=== PATIENT | male | born 1985 | race Caucasian/White ===

== ENCOUNTER 2020-02-09 12:20 | Emergency (ER) | payer OTHER ==
[~2020-02-09] VITALS: Ht 185.5 cm; Wt 106.6 kg
[~2020-02-09 12:20] MED LIST: HYDR-34 PO; LNZ600T PO
[2020-02-09 12:23] VITALS: BP 145/92
[2020-02-09] MEDS ORDERED: LIDOCAINE 1% INJ 20 ML 20 ML VIAL ONE (12:24)
[2020-02-09] MEDS ORDERED: TETANUS,DIPTH,PERTUSS P/F (BOOSTRIX) 0.5 ML VIAL IM ONE ×2 (12:24→12:30)
[2020-02-09] MEDS ORDERED: LIDOCAINE 1% INJ 20 ML 20 ML VIAL INJ ONE (12:45)
[2020-02-09] MEDS ORDERED: AMOX-358 PO (12:50)
--- NOTE | 2020-02-09 12:50 | ED Lower Extremity ---
General Chief Complaint: Laceration Stated Complaint: L LEG LACERATION Nursing Triage Note: PT AMB TO [facility] WITH COMPLAINT OF LEFT LEG LACERATION. STATES WAS CUTTING FIREWOOD AND ACCIDENTALLY CAUGHT LEG. DENIES ANY OTHER INJURIES. UNKNOWN LAST TETANUS. Nursing Sepsis Screen: No Definite Risk Source: patient Exam Limitations: no limitations History of Present Illness Date Seen by Provider: Feb 09, 2020 Time Seen by Provider: 12:48 Initial Comments To ER with a left leg laceration. This was from a chain saw just prior to arrival. Tetanus is not up-to-date. Onset: just prior to arrival Severity: moderate (IGO) Pain/Injury Location: left leg Method of Injury: other (The patient states he was cutting firewood above his head with a chainsaw and it came down onto his leg. He did have jeans on at the time of injury) Allergies and Home Medications Allergies Coded Allergies: NKANo Known Allergies (Unverified Allergy, Mild, 10/30/08) Home Medications Amoxicillin/Potassium Clav 1 Each Tablet, 1 EACH PO BID Prescribed by: MELLISA CHAND on 02/09/20 1250 Hydrocodone Bit/Acetaminophen 1 Ea Tablet, 1-2 EA PO Q 4 - 6 HR PRN, (Reported) Linezolid 600 Mg Tablet, 1 TAB PO BID, (Reported) Patient Home Medication List Home Medication List Reviewed: Yes Review of Systems Constitutional: no symptoms reported, see HPI; No chills, No diaphoresis, No fever, No malaise, No weakness EENTM: see HPI, no symptoms reported Respiratory: no symptoms reported, see HPI Cardiovascular: no symptoms reported; No syncope Gastrointestinal: no symptoms reported, see HPI Genitourinary: no symptoms reported, see HPI Musculoskeletal: no symptoms reported, see HPI; No joint pain, No joint swelling Skin: see HPI Psychiatric/Neurological: No Symptoms Reported, See HPI Past Dqupsla-Qvelih-Gbyobw Hx Patient Social History Alcohol Use: Denies Use Recreational Drug Use: No Smoking Status: Never a Smoker Recent Foreign Travel: No Contact w/Someone Who Travel: No Recent Infectious Disease Expo: No Immunizations Up To Date Tetanus Booster (TDap): More than 5yrs PED Vaccines UTD: Yes Seasonal Allergies Seasonal Allergies: No Past Medical History Surgeries: No Respiratory: No Cardiac: No Neurological: No Reproductive Disorders: No Sexually Transmitted Disease: No Gastrointestinal: No Musculoskeletal: No Endocrine: No Cancer: No Psychosocial: No Integumentary: Yes (h/x of infection lateral rt ankle last wk. ) Recent Skin Changes Blood Disorders: No Family Medical History No Pertinent Family Hx Physical Exam Vital Signs Vital Signs - First Documented 02/09/20 12:23 Pulse 74 Resp 20 B/P (MAP) 145/92 (109) Pulse Ox 100 O2 Delivery Room Air Capillary Refill : Less Than 3 Seconds Height, Weight, BMI Height: '" Weight: lbs. oz. kg; 30.00 BMI Method: General Appearance: WD/WN, no apparent distress HEENT: normal ENT inspection Neck: normal inspection Cardiovascular: normal peripheral pulses, no edema Respiratory: no respiratory distress, no accessory muscle use Back: normal inspection (E), no vertebral tenderness Hips: bilateral hip normal range of motion, bilateral hip no evidence of injury Legs: left leg normal range of motion, left leg other (Laceration to medial calf) Knees: bilateral knee non-tender, bilateral knee normal inspection Neurologic/Psychiatric: alert, normal mood/affect, oriented x 3 Skin: normal color, warm/dry Lymphatic: no adenopathy Procedures/Interventions Wound Location: Lower Extremities Wound Length (cm): 7 Wound's Depth, Shape: linear, irregular, flap Wound Explored: no foreign body removed Irrigated w/ Saline (ccs): 300 Anesthesia: 1% Lidocaine Volume Anesthetic (ccs): 5 Wound Debrided: minimal Suture Size: 5-0 Number of Sutures: 10 Layer Closure?: 1 Sterile Dressing Applied?: No Progress/Results/Core Measures Results/Orders My Orders Orders - MELLISA CHAND APRN Dipht,Pertuss(Acell),Tet Adult (Boostrix (02/09/20 12:30) Lidocaine 1% Inj 20 Ml (Xylocaine 1% Inj (02/09/20 12:45) Medications Given in ED Current Medications Medications Dose Ordered Sig/Ced Route Start Time Stop Time Status Last Admin Dose Admin Diphtheria/ Tetanus/Acell Pertussis 0.5 ml ONCE ONCE IM 02/09/20 12:30 02/09/20 12:31 DC 02/09/20 12:33 0.5 ML Lidocaine HCl 20 ml ONCE ONCE INJ 02/09/20 12:45 02/09/20 12:46 DC 02/09/20 12:34 20 ML Vital Signs/I&O 02/09/20 12:23 Pulse 74 Resp 20 B/P (MAP) 145/92 (109) Pulse Ox 100 O2 Delivery Room Air Blood Pressure Mean: 109 Departure Impression Primary Impression: Leg laceration Qualified Codes: S81.812A - Laceration without foreign body, left lower leg, initial encounter Disposition: HOME, SELF-CARE Condition: Stable Departure-Patient Inst. Decision time for Depature: 12:48 Referrals: ALFONSO CISNEROS MD (PCP/Family) Primary Care Physician Patient Instructions: Laceration Repair With Stitches (DC) Add. Discharge Instructions: 1. You can let water run over the starting tonight. Don't soak it in water such as a hot tub baths or swimming pool until the stitches are removed. Return to ER in 10-12 days to have the stitches removed. Return to ER before then for any si gn of infection such as redness or swelling or pus like drainage. All discharge instructions reviewed with patient and/or family. Voiced understanding. Scripts Amoxicillin/Potassium Clav (Augmentin 875-125 Tablet) 1 Each Tablet 1 EACH PO BID, #10 TAB 0 Refills Prov: MELLISA CHAND APRN 02/09/20 Work/School Note: Work Release Form Date Seen in the Emergency Department: Feb 09, 2020 Return to Work: Feb 10, 2020 MELLISA CHAND APRN Feb 09, 2020 12:50
== END 2020-02-09 13:02 | disposition home or self-care (01) ==
LOC: EDUNIT# 12:20 → ER 12:21
DX: S81.812A Laceration without foreign body, left lower leg, initial encounter (principal); Z23 Encounter for immunization; W31.2XXA Contact with powered woodworking and forming machines, initial encounter
CPT/HCPCS: 12015; 90715

== ENCOUNTER 2022-12-06 05:30 | Outpatient (CLI) | payer OTHER ==
[~2022-12-06] VITALS: Ht 185.4 cm; Wt 106.3 kg
[~2022-12-06 05:30] MED LIST changes: +AMOX-358 PO
== END 2022-12-06 15:08 | disposition home or self-care (01) ==
LOC: PREOP 05:30
PROVIDERS: ATTEND Surgery
DX: Z01.818 Encounter for other preprocedural examination (principal)

== ENCOUNTER 2022-12-13 07:49 | Day surgery (SDC) | payer OTHER ==
[2022-12-13] VITALS (11 sets, daily range): BP systolic 106–117; BP diastolic 68–84
[~2022-12-13] VITALS: Ht 185.4 cm; Wt 106.3 kg
--- NOTE | 2022-12-13 08:25 | Progress Note-Pre Operative ---
Pre-Operative Progress Note Date H&P Reviewed: Dec 13, 2022 Time H&P Reviewed: 08:23 History & Physical: H&P Reviewed, Patient Examed, No changes noted Pre-Operative Diagnosis: Right inguinal hernia, site marked JESSICA REYNA DO Dec 13, 2022 08:25
[2022-12-13] MEDS: LACTATED RINGERS 1,000 ML IV PRN ×2 (08:55→11:16)
[2022-12-13] MEDS ORDERED: ceFAZolin INJECTION 2,000 MG in NS (IVPB) 50 ML 50 ML IV ONE (09:00)
[2022-12-13] MEDS ORDERED: LIDOCAINE 1% w/EPI 1:100,000 20 ML VIAL ONE (09:26)
[2022-12-13] MEDS ORDERED: GLYCOPYRROLATE INJ 0.2 MG/ML 2 ML VIAL ONE ×2 (09:40→12:18)
[2022-12-13] MEDS ORDERED: MIDAZOLAM INJ 2 MG/2 ML VIAL ONE (09:40)
[2022-12-13] MEDS ORDERED: LIDOCAINE PF 2% 5 ML VIAL ONE (09:40)
[2022-12-13] MEDS ORDERED: proPOfol 200 MG/20 ML (DIPRIVAN) VIAL IV ONE (09:40)
[2022-12-13] MEDS ORDERED: fentaNYL INJECTION 100 MCG/2 ML VIAL ONE (09:40)
[2022-12-13] MEDS ORDERED: NEOSTIGMINE (BLOXIVERZ ) 1 MG/1ML 10 ML VIAL ONE (09:40)
[2022-12-13] MEDS ORDERED: dexAMETHasone INJ 10 MG/ML 1 ML VIAL ONE (09:40)
[2022-12-13] MEDS ORDERED: ROCURONIUM 50 MG/5 ML (ZEMURON) VIAL IV ONE (09:40)
[2022-12-13] MEDS ORDERED: ONDANSETRON 4 MG/2 ML (SDV) Z0FRAN ONE ×2 (09:40→12:45)
[2022-12-13] MEDS ORDERED: LIDOCAINE 1% w/EPI 1:100,000 20 ML VIAL INJ ONE (11:38)
--- NOTE | 2022-12-13 12:25 | Progress Note-Post Operative ---
Post-Operative Progess Note Surgeon (s)/Rope Making Machine Operator (s) Surgeon JESSICA REYNA DO Rope Making Machine Operator: Jeanie Pre-Operative Diagnosis Right inguinal hernia, site marked Post-Operative Diagnosis Same Cord lipoma Procedure & Operative Findings Date of Procedure 12/13/22 Procedure Performed/Findings Laparoscopic Right Inguinal Herniarraphy with mesh placement - Robotic Excision of cord lipoma After informed consent was obtained, the patient was brought to the operating room and placed on the operating table in a supine position. He was sterilely prepped and draped in a normal fashion. Local lidocaine was used to infiltrate the skin above the umbilicus. I made an incision with #11 blade, carried down to the skin into subcutaneous tissue and then deepened down the subcutaneous tissue with Bovie electrocautery down to the fascia. Fascia was incised with Bovie electrocautery and bluntly entered the abdomen, swept a finger around, placed 0 Vicryl [id number] suture and placed limited trocar port under direct visualization. Created pneumoperitoneum, able to visualize the hernia and took a picture of this and then placed two 8 mm ports about 10 cm on either side of the midline port using a local lidocaine, 11 blade for stab incision and then advanced the robotic port under direct visualization. Once this was in, I then placed the patient in Trendelenburg and then placed the working instruments, the fenestrated bipolar and the scissors. Looked on the left side and saw early signs of inguinal hernia. I could see a large indirect hernia defect on the right side. Next, I came across the peritoneum approximately 8 cm away from the hernia defect, going across laterally starting lateral about 17cm and cutting toward the median umbilical ligament. I then carefully dissected the visceral peritoneum away and down and then in the midline, went through the parietal side and dissected down to the pubic tubercle, dissecting this down carefully pushing the peritoneum away, I was able to then visualize the pubic tubercle and Bhanu's ligament. I went 2 cm posterior and at this point, we then had a critical view of the dissection, able to dissect 2 cm across the midline to the right side, 2 cm posterior to the Bhanu's ligament, able to then parietalize the vas deferens and spermatic vessels right at the groove between Bhanu's and iliac vein and able to dissect, make sure there was no peritoneum between those two, able to see the indirect hernia space, took a picture of this, looked at the femoral space (no hernia seen). Then I carefully teased out the hernia sac and could visualize the indirect hernia space. Next I looked on the cord and cord structures. There was a large cord lipoma that I was able to reduce and cut off. This was then removed through the port to get it out of the peritoneal space. I could clearly see the inguinal canal and the indirect space. Next I carried the posterior lateral dissection all the way out and then placed a 12 x 17 Mid[place]ieght Bard 3DMax mesh. It laid in nicely, covered the hernia defect and the rest of the area. It was above the peritoneum, sutured it at the pubic tubercle with a 3-0 Vicryl suture and tied this off. I tied another suture out laterally to hold the mesh in place; this appeared to lay in very nicely. I then brought down the pneumoperitoneum to about 8 mmHg and then started closing the peritoneum. Started laterally and used a 2-0 V-lock barbed suture to start a running stitch to close the peritoneum. This was closed nicely, took a picture of the closure at this point, then removed both needles had switched to a suture waste collection driver from the scissors. The patient was then placed back supine, removed all ports under direct visualization, allowed pneumoperitoneum to escape and then closed the supraumbilical incision, closing the fascia with 0 Vicryl suture previously placed. Copiously irrigated all incisions and then closed the two small 8 mm incisions with two interrupted 4-0 undyed Monocryl subcuticular stitches and closed the supraumbilical incision with three interrupted undyed Monocryl subcuticular stitch. Area was cleaned and dried. Dermabond was placed. The patient tolerated the procedure. The sponge, instrument and needle counts were correct at the end of the case. Dr. Ware assisted during this surgery by making incisions, closing incisions, helping to identify anatomy and passing/retrieving suture and needles. Anesthesia Type GET Estimated Blood Loss Estimated blood loss (mL): scant Specimens/Packing Specimens Removed cord lipoma JESSICA REYNA DO Dec 13, 2022 12:25
[2022-12-13] MEDS ORDERED: ACHD5005 PO (12:26)
--- NOTE | 2022-12-13 12:27 | Discharge Inst-Surgical ---
Discharge Inst-Surgical Depart Medication/Instructions New, Converted or Re-Newed RX: Transmitted to Pharmacy Patient Instructions Follow up Appt: Make appointment for 1 week. [phone] Instructions: No lifting greater than 20 pounds. No strenuous activity. May shower in 24 hours, no tub bath or soaking. Use incentive spirometer at home as directed. No Smoking Skin/Wound Care: May remove bandages in am. You need to leave the Dermabond on incision it will fall off on it's own. Symptoms to Report: Appetite Changes, Extremity Discoloration, Numbness/Tingling, Swelling Increased, Bleeding Excessive, Eyesight Changes, Pain Increased, Urine Color Change, Constipation(Persistent), Fever over 101 degree F, Pain/Pressure in chest, Urinating Difficulty, Cough Up/Vomit Blood, Heart Beat Irreg/Pounding, Pain/Pressure in jaw, Cramps in feet or legs, Lightheadedness, Pain/Pressure in shoulder, Diarrhea(Persistent), Memory Changes Suddenly, Questions/Concerns, Weight gain consecutive days, Dizziness/Fainting, Nausea/Vomiting, Shortness of Breath, Weight gain over 2 pounds If questions or concerns contact your physician Or seek help at emergency department. Activity Activity as Tolerated: Yes Activity Instructions: Avoid Stress to Incision Driving Instructions: No Driving/Refer to Dr. Diaz Discharge Diet: No Restrictions Diet After 24 Hours: Clear Liquid if Nauseous If Any Problems/Questions/Issu: Contact Your Physician, Go to Emergency Room Skin/Wound Care Infection Signs and Symptoms: Increased Redness, Foul Odor of Wound, Increased Drainage, Skin Itchy or Has a Rash, Increased Swelling, Temperature Above 101 F Wound Care Comment: heating pad to shoulder or neck tonight for pain Bathing Instructions: Shower Stitches/[place]/Dermabond Dis: Dermabond Ice Pack: Ice On and Off Site JESSICA REYNA DO Dec 13, 2022 12:27
[2022-12-13] MEDS ORDERED: SEVOFLURANE (ULTANE) 15 ML INHAL SOLN ONE ×2 (12:37→12:46)
[2022-12-13] MEDS ORDERED: morphine INJ 10 MG/ML 1ML (SYR OR VIAL) IVP ONE (12:45)
[2022-12-13] MEDS ORDERED: ONDANSETRON 4 MG/2 ML (SDV) Z0FRAN IVP PRN (12:45)
[2022-12-13] MEDS ORDERED: MEPERIDINE INJ 50 MG/ML VIAL IVP ONE (12:45)
[2022-12-13] MEDS ORDERED: HYDROmorphone INJECTION 2 MG/ML VIAL IV ONE (12:45)
[2022-12-13] MEDS ORDERED: PROMETHAZINE INJ 25 MG/ML (PHENERGAN) AMP IVP ONE (12:45)
[2022-12-13] MEDS ORDERED: morphine INJ 10 MG/ML 1ML (SYR OR VIAL) ONE (12:45)
[2022-12-13] MEDS ORDERED: HYDROmorphone INJECTION 2 MG/ML VIAL ONE (13:19)
== END 2022-12-13 14:45 ==
LOC: SDC 07:49
PROVIDERS: ATTEND Surgery
DX: K40.90 Unilateral inguinal hernia, without obstruction or gangrene, not specified as recurrent (principal); D17.6 Benign lipomatous neoplasm of spermatic cord; Z28.310 Unvaccinated for COVID-19
CPT/HCPCS: 49650; 87081; C1781